=== PATIENT | female | born 1970 | race African-American/Black ===

== ENCOUNTER 2016-05-12 12:09 | Emergency (ER) | payer OTHER ==
[~2016-05-12] VITALS: Ht 154.9 cm; Wt 59.0 kg
[~2016-05-12 12:09] MED LIST: ESTRACE0.5 MG PO; FLAGYL500 MG PO; HYDROCHLOROTHIA25 M1 PO; LISINOPRIL10 MG PO; ZOFRAN ODT4 MG PO
[2016-05-12 12:10] VITALS: BP 138/97
[2016-05-12] MEDS ORDERED: METFORMIN HCL500 MG PO (12:15)
[2016-05-12 12:35] LABS: URINE BILIRUBIN NEGATIVE (Negative); URINE BLOOD TRACE (Negative); URINE COLOR YELLOW; URINE GLUCOSE-RANDOM* NEGATIVE (Negative); URINE KETONES NEGATIVE (Negative); URINE LEUKOCYTES-REFLEX NEGATIVE (Negative); URINE PROTEIN (DIPSTICK) NEGATIVE (Negative); URINE UROBILINOGEN 0.2 E.U./dl (0.2-1.0)
== END 2016-05-12 13:00 | disposition home or self-care (01) ==
LOC: ER 12:09
PROVIDERS: Physician Assistant
DX: N39.3 Stress incontinence (female) (male) (principal); I10 Essential (primary) hypertension; F10.99 Alcohol use, unspecified with unspecified alcohol-induced disorder; Z90.710 Acquired absence of both cervix and uterus; Z88.0 Allergy status to penicillin

== ENCOUNTER 2017-07-20 18:56 | Emergency (ER) | payer OTHER, SELFPAY ==
[~2017-07-20] VITALS: Ht 154.9 cm; Wt 59.0 kg
--- NOTE | ~2017-07-20 | EKG ---
[address] [address] ELECTROCARDIOGRAM REPORT Name: CITLALLIEDWARD PHILIP Chata Room #: [facility]#: [id number] Admission: 07/20/17 Attend Phys: Discharge: 07/20/17 Date of : 68 Report #: [id number] THIS REPORT FOR: //name// [facility] ED Test Date: 2017-07-20 Test Time: 19:17:43 Pat Name: EDWARD LENNON Department: Room: Gender: F Charge Lpn: NITHIN : 1970 Requested By: Christian Major Order Number: [id number] MD: Bertrand Pappas Measurements Intervals [place] Rate: 70 P: 68 [place]: 142 QRS: 21 QRSD: 86 T: 117 QT: 309 QTc: 334 Interpretive Statements Sinus rhythm Nonspecific ST and T wave abnormality No previous ECG available for comparison Electronically Signed On 07-21-2017 16:33:14 CDT by Bertrand Pappas [email or web address] <ELECTRONICALLY SIGNED> By: Bertrand Pappas MD, [facility] 07/21/17 1633 1917 16 Bertrand Pappas MD, FACC /EPI
[~2017-07-20 18:56] MED LIST changes: +METFORMIN HCL500 MG PO
[2017-07-20 19:30] LABS: ABSOLUTE NEUTROPHILS 2.6 thou/uL (1.4-8.2); BASOPHILS 0.7 % (0.0-2.0); EOSINOPHILS 4.1 % (0.0-3.0); HEMOGLOBIN 14.9 gm/dL (12.0-15.0); LYMPHOCYTES 41.9 % (24.0-44.0); MCH 27.2 pg (26.0-34.0); MCHC 33.2 g/dL (28.0-37.0); MONOCYTES 8.7 % (1.0-8.0); PLATELET COUNT 316 thou/uL (150-400); POLYS 44.6 % (36.0-66.0); RBC 5.48 mil/uL (4.20-5.00); WBC 5.8 thou/uL (4.0-11.0)
[2017-07-20] MEDS ORDERED: ESTRADIOL 1 MG T1 M1 PO (19:31)
[2017-07-20 19:39] LABS: ANION GAP 9 mmol/L (7-16); BUN 18 mg/dL (7-18); CHLORIDE 101 mmol/L (98-107); CO2 31 mmol/L (21-32); GLUCOSE 95 mg/dL (74-106); POTASSIUM 3.1 mmol/L (3.5-5.1); SODIUM 141 mmol/L (136-145)
[2017-07-20 19:47] LABS: ALBUMIN 4.1 g/dL (3.4-5.0); SGOT 24 U/L (15-37); SGPT 26 U/L (30-65); TOTAL BILIRUBIN 0.2 mg/dL (<0.1-1.0); TOTAL PROTEIN 8.5 g/dL (6.4-8.2); TROPONIN-I < 0.04 ng/mL (<0.06)
[2017-07-20 20:28] VITALS: BP 172/94
[2018-01-16] MEDS ORDERED: MACROBID 100 M100 M1 PO (14:13)
== END 2017-07-20 20:28 | disposition home or self-care (01) ==
LOC: ER 18:56
PROVIDERS: Emergency Medicine
DX: R07.89 Other chest pain (principal); R06.00 Dyspnea, unspecified; I10 Essential (primary) hypertension; Z90.710 Acquired absence of both cervix and uterus; Z88.0 Allergy status to penicillin

== ENCOUNTER → 2017-08-04 | Outpatient (CLI) | payer OTHER ==
[~2017-08-04] MED LIST changes: +ESTRADIOL 1 MG T1 M1 PO; +MACROBID 100 M100 M1 PO
== END ==
LOC: RAD 02:21
DX: Z12.31 Encounter for screening mammogram for malignant neoplasm of breast (principal)

== ENCOUNTER 2018-05-27 18:35 | Emergency (ER) | payer OTHER ==
[~2018-05-27] VITALS: Ht 154.9 cm; Wt 62.1 kg
[2018-05-27 19:09] LABS: ANION GAP 7 mmol/L (7-16); BUN 18 mg/dL (7-18); CALCIUM 9.4 mg/dL (8.5-10.1); CHLORIDE 102 mmol/L (98-107); CO2 31 mmol/L (21-32); CREATININE 0.9 mg/dL (0.6-1.0); GLUCOSE 83 mg/dL (74-106); POTASSIUM 3.4 mmol/L (3.5-5.1); SODIUM 140 mmol/L (136-145)
[2018-05-27 19:18] LABS: TROPONIN-I <0.06 ng/mL (<0.06)
[2018-05-27 19:29] LABS: ABSOLUTE NEUTROPHILS 2.5 thou/uL (1.4-8.2); BASOPHILS 0.5 % (0.0-2.0); EOSINOPHILS 3.7 % (0.0-3.0); HEMATOCRIT 44.2 % (37.0-47.0); HEMOGLOBIN 14.3 gm/dL (12.0-15.0); MCH 26.8 pg (26.0-34.0); MCHC 32.4 g/dL (28.0-37.0); MCV 82.8 fL (80.0-100.0); MONOCYTES 8.9 % (1.0-8.0); PLATELET COUNT 312 thou/uL (150-400); POLYS 41.9 % (36.0-66.0); RBC 5.33 mil/uL (4.20-5.00); RDW 13.9 % (10.5-14.5)
[2018-05-27 20:51] VITALS: BP 109/53
--- NOTE | 2018-05-28 08:51 | EKG ---
[address] [address] ELECTROCARDIOGRAM REPORT Name: CITLALLIEDWARD PHILIP Chata Room #: [facility]#: [id number] Admission: 05/27/18 Attend Phys: Discharge: 05/27/18 Date of : 68 Report #: [id number] THIS REPORT FOR: //name// [facility] ED Test Date: 2018-05-27 Test Time: 18:43:35 Pat Name: EDWARD LENNON Department: Room: Gender: F Overhead Line Worker: : 1970 Requested By: Inna Mackey Order Number: [id number] MD: Bertrand Pappas Measurements Intervals [place] Rate: 66 P: 64 [place]: 138 QRS: 26 QRSD: 84 T: 57 QT: 394 QTc: 413 Interpretive Statements Sinus rhythm Abnormal R-wave progression, early transition Compared to ECG 07/20/2017 19:17:43 ST (T wave) deviation no longer present early R-wave progression is now present Electronically Signed On 05-28-2018 8:50:50 PASSENGER CAR INSPECTOR by Bertrand Pappas [email or web address] <ELECTRONICALLY SIGNED> By: Bertrand Pappas MD, [facility] 05/28/18 0850 1843 1843 Bertrand Pappas MD, [facility] /EPI
== END 2018-05-27 20:52 | disposition home or self-care (01) ==
LOC: ER 18:35
PROVIDERS: Student in an Organized Health Care Education/Training Program
DX: B34.9 Viral infection, unspecified (principal); I10 Essential (primary) hypertension; Z90.710 Acquired absence of both cervix and uterus; Z88.0 Allergy status to penicillin

== ENCOUNTER → 2018-08-27 | Outpatient (CLI) | payer OTHER | LOC: RAD 03:25 | DX: Z12.31 Encounter for screening mammogram for malignant neoplasm of breast (principal) ==

== ENCOUNTER 2018-12-06 10:02 | Inpatient (IN) | payer OTHER ==
[2018-12-06] VITALS (8 sets, daily range): BP systolic 113–147; BP diastolic 65–85
[~2018-12-06] VITALS: Ht 154.9 cm; Wt 59.0 kg
[2018-12-06 10:34] LABS: ABSOLUTE NEUTROPHILS 6.8 thou/uL (1.4-8.2); BASOPHILS 0.5 % (0.0-2.0); EOSINOPHILS 0.3 % (0.0-3.0); HEMOGLOBIN 15.4 gm/dL (12.0-15.0); LYMPHOCYTES 13.1 % (24.0-44.0); MCH 27.2 pg (26.0-34.0); MCHC 33.6 g/dL (28.0-37.0); MCV 81.1 fL (80.0-100.0); MONOCYTES 4.9 % (1.0-8.0); PLATELET COUNT 311 thou/uL (150-400); POLYS 81.2 % (36.0-66.0); RBC 5.67 mil/uL (4.20-5.00); RDW 14.1 % (10.5-14.5); WBC 8.3 thou/uL (4.0-11.0)
[2018-12-06 10:47] LABS: ALBUMIN 4.2 g/dL (3.4-5.0); CALCIUM 10.3 mg/dL (8.5-10.1); CREATININE 0.9 mg/dL (0.6-1.0); DIRECT BILIRUBIN 0.1 mg/dL (<0.1-0.3); TOTAL BILIRUBIN 0.6 mg/dL (<0.1-1.0); TOTAL PROTEIN 8.5 g/dL (6.4-8.2)
[2018-12-06 10:50] LABS: POTASSIUM 2.9 mmol/L (3.5-5.1)
[2018-12-06 11:47] LABS: URINE BILIRUBIN NEGATIVE (Negative); URINE BLOOD TRACE (Negative); URINE COLOR YELLOW; URINE GLUCOSE-RANDOM* NEGATIVE (Negative); URINE KETONES 3+ (Negative); URINE LEUKOCYTES 2+ (Negative); URINE NITRITE NEGATIVE (Negative); URINE PROTEIN (DIPSTICK) NEGATIVE (Negative); URINE UROBILINOGEN 0.2 E.U./dl (0.2-1.0)
[2018-12-06 11:48] LABS: URINE CLARITY HAZY
[2018-12-06 12:01] LABS: SQUAMOUS >10 Many /LPF (0-3)
[2018-12-06 12:02] LABS: CRYSTALS None Seen /LPF (None Seen); HYALINE CASTS 0-3 Few /LPF (None Seen); URINE RBC None Seen /HPF (0-2)
[2018-12-06 15:25] LABS: MAGNESIUM 1.7 mg/dL (1.8-2.4)
[2018-12-06 18:18] LABS: CALCIUM 9.5 mg/dL (8.5-10.1); CREATININE 0.9 mg/dL (0.6-1.0); MAGNESIUM 1.8 mg/dL (1.8-2.4); POTASSIUM 3.4 mmol/L (3.5-5.1)
[2018-12-07 03:06] LABS: CA 125 7.7 U/mL (0.0-38.1)
[2018-12-07 03:55] LABS: ALBUMIN 3.4 g/dL (3.4-5.0); CALCIUM 9.1 mg/dL (8.5-10.1); CREATININE 0.8 mg/dL (0.6-1.0); TOTAL BILIRUBIN 0.5 mg/dL (<0.1-1.0); TOTAL PROTEIN 7.3 g/dL (6.4-8.2)
[2018-12-07 03:56] LABS: HEMATOCRIT 40.2 % (37.0-47.0); MCH 27.2 pg (26.0-34.0); MCHC 33.2 g/dL (28.0-37.0); MCV 81.9 fL (80.0-100.0); RBC 4.91 mil/uL (4.20-5.00); RDW 14.2 % (10.5-14.5); WBC 9.7 thou/uL (4.0-11.0)
[2018-12-07 04:13] LABS: HEMOGLOBIN 13.3 gm/dL (12.0-15.0)
[2018-12-07 05:21] VITALS: BP 93/55; BP 93/5555
[2018-12-07 09:05] VITALS: BP 120/75
[2018-12-07 17:30] VITALS: BP 122/78
[2018-12-07 20:44] VITALS: BP 107/67
[2018-12-08 03:56] LABS: CALCIUM 8.6 mg/dL (8.5-10.1); CREATININE 0.7 mg/dL (0.6-1.0); MAGNESIUM 1.7 mg/dL (1.8-2.4); POTASSIUM 3.2 mmol/L (3.5-5.1)
[2018-12-08 04:28] LABS: HEMATOCRIT 36.5 % (37.0-47.0); HEMOGLOBIN 12.1 gm/dL (12.0-15.0); MCH 27.2 pg (26.0-34.0); MCHC 33.2 g/dL (28.0-37.0); RBC 4.45 mil/uL (4.20-5.00); RDW 13.7 % (10.5-14.5); WBC 7.8 thou/uL (4.0-11.0)
[2018-12-08 05:21] VITALS: BP 114/66
[2018-12-08 08:19] VITALS: BP 136/81
[2018-12-08] MEDS ORDERED: MACROBID 100 M100 M1 PO (11:40)
--- NOTE | 2018-12-08 16:06 | PATH ---
[facility] [place] [address] PATHOLOGY RPT PROCEDURE Name: CITLALLITAISHA M Room #: 208-P ADM IN M.R.#: [id number] Admission: 12/06/18 Date of : 68 Discharge: Report #: [id number] Path Case #: [id number] [facility] Accession Number: [id number] . 01 Material submitted: . PART A: duodenum - BIOPSY OF DUODENAL MASS PART B: stomach - BIOPSY OF GASTRITIS . 01 Clinical history: . Abdominal pain, nausea with vomiting . 02 Diagnosis: A. Small bowel mucosa, duodenal mass, endoscopic biopsy: - Gastric fundic-type metaplastic mucosa associated with moderate acute and chronic inflammation, compatible with moderate acute peptic duodenitis. - Negative for villous blunting or increase in intraepithelial lymphocytes. - Mild reacive Annika gland hyperplasia. - Negative for dysplasia or malignancy. . B. Gastric mucosa, gastritis, endoscopic biopsy: - Helicobacter pylori induced moderate active gastritis. - Negative for intestine metaplasia or atrophy or dysplasia. - Properly controlled immunohistochemical stain performed showing mild number of organisms present. (IUV:city weighmaster; 12/08/2018) MBNikki/12/08/2018 . 02 Electronically signed: . Olga Flores MD, Pathologist NPI- [id number] . 01 Gross description: . A. Received in formalin labeled "Taisha Kaminski, BX of duodenal mass," are 3 segments of morales soft tissue measuring 0.9 x 0.8 x 0.4 cm in aggregate dimensions and ranging from 0.4 to 0.6 cm in maximum dimension. The specimen is submitted entirely in cassette A1. . B. Received in formalin labeled "Taisha Kaminski, BX of gastritis," are 3 segments of morales soft tissue measuring 1.0 x 0.8 x 0.3 cm in aggregate dimensions and ranging from 0.4 to 0.5 cm in maximum dimension. The specimen is submitted entirely in cassette B1. (TSD; 12/07/2018) TOB/TOB . 02 Pathologist provided ICD-10: [place] [address] PATHOLOGY RPT PROCEDURE Name: TAISHA KAMINSKI Room #: 208-P ADM IN M.R.#: [id number] Admission: 12/06/18 Date of : 68 Discharge: Report #: [id number] Path Case #: [id number] K29.80, K29.70, B96.81 . 02 CPT . 907502, [id number], [id number] Specimen Comment: A courtesy copy of this report has been sent to Specimen Comment: [phone], , . Specimen Comment: Report sent to ,DR SHARIF / DR OLIVAREZ Performed at: [address] [facility] [address], [place] [id number] MD Jaleel Mills MD Phone: [phone] Performed at: [address] [facility] [address] [id number] MD Olga Flores MD Phone: [phone]
[2018-12-08 17:20] VITALS: BP 124/73
[2018-12-08 19:28] VITALS: BP 113/57
[2018-12-09 04:00] VITALS: BP 131/61
[2018-12-09 05:24] LABS: MAGNESIUM 1.7 mg/dL (1.8-2.4); POTASSIUM 3.9 mmol/L (3.5-5.1)
[2018-12-09 07:25] VITALS: BP 114/58
[2018-12-09 19:55] VITALS: BP 128/75
--- NOTE | 2018-12-10 16:50 | P ---
[facility] [address] [address] PROCEDURE REPORT Name: CITLALLIEDWARD M Room #: 208-P [facility] IN M.R.#: [id number] Admission: 12/06/18 Attend Phys: Chandra Hernandez MD Discharge: 12/09/18 Date of : 68 Report #: [id number] THIS REPORT FOR: //name// CC: Greta Hernandez MD DATE OF SERVICE: 12/07/2018 PROCEDURE PERFORMED: Upper endoscopy with biopsies. HISTORY OF PRESENT ILLNESS: The patient is a 48-year-old female with new-onset abdominal pain last Thursday, also associated with nausea and vomiting, was evaluated at [facility]. Labs at that time were negative. There was no imaging performed. The patient did have continued pain, was seen here in the Emergency Room. CT scan of the abdomen and pelvis here showing a 4 x 4.8 x 4.2 well-circumscribed low-density mass in the region of the uncinate process of the pancreas as well as some mass effect upon the adjacent duodenum. There are surrounding soft tissue inflammatory changes. The duodenum was decompressed. Liver and gallbladder normal. The patient's liver function tests and lipase were normal on admission and today. A CEA level as well as CA 19-9 are pending. CA-125 was normal at 7.7. Plan is for upper endoscopy. DESCRIPTION OF PROCEDURE: The risks and benefits of the procedure were explained to the patient; those risks including, but not limited to bleeding, perforation and the risk of sedation. She understood these risks and gave informed consent. Sedation was given using propofol per Anesthesia. Next, using a standard Olympus upper endoscope, the scope was placed in the patient's mouth and advanced under direct vision through the esophagus, stomach and into the second portion of the duodenum. The larynx was normal in appearance. The esophagus was normal throughout. The GE junction was normal. Overall, the gastric mucosa was normal in the fundus and the body. However, in the antrum, there was moderate gastritis with multiple erosions and a few small clean white-bases ulcers. No evidence of bleeding. Biopsies were obtained to rule out H. pylori. The pylorus was normal and patent. The duodenal bulb was normal; however, at the first to second portion of the duodenum, there was a large polyp/mass-like lesion. This was a near obstructing mass. It appears to have a tubular adenomatous appearance to it. I was able to obtain some biopsies. There was bile flow noted around the mass area. I tried several times to advance the scope beyond, however, there was not much lumen remaining because of the mass effect. The polyp/mass appears to be about 2 cm in size. It was somewhat soft with compression using a biopsy forceps. At this point, the scope was then withdrawn and the procedure terminated. The patient tolerated the procedure well. IMPRESSION: [facility] [address] [place] [address] PROCEDURE REPORT Name: EDWARD LENNON Room #: 208-P DIS IN M.R.#: [id number] Admission: 12/06/18 Attend Phys: Chandra Hernandez MD Discharge: 12/09/18 Date of : 68 Report #: [id number] 1. Large polyp/mass involving the first to second portion of the duodenum. This is decreasing the size of the lumen significantly. It appears to be adenomatous type of tissue. Again, biopsies were obtained. There could be a significant submucosal component to this lesion. 2. Gastritis with multiple erosions and a few small ulcerations. 3. Otherwise, normal upper endoscopy. RECOMMENDATIONS: 1. Await biopsy results. 2. We will advance diet at this time. 3. I would recommend having the patient proceed with an endoscopic ultrasound in the near future. 4. We will start daily PPI therapy. Thank you for allowing me to participate in her care. <ELECTRONICALLY SIGNED> By: Sanjay Merrill MD 12/10/18 1650 1250 0156 Sanjay Merrill MD /nt
== END 2018-12-09 21:25 | disposition short-term general hospital (02) | DRG 381 ==
LOC: ER 10:02 → EROBS 12:21 → 2N 12:21 → EROBS 14:16 → 2N 20:18
PROVIDERS: Internal Medicine; Nurse Practitioner; ADMIT Internal Medicine
PROC: 0DB98ZX Excision of Duodenum, Via Natural or Artificial Opening Endoscopic, Diagnostic (ICD-10-PCS; principal; 2018-12-07)
PROC: 0DB78ZX Excision of Stomach, Pylorus, Via Natural or Artificial Opening Endoscopic, Diagnostic (ICD-10-PCS; principal; 2018-12-07)
DX: K31.5 Obstruction of duodenum (principal); N39.0 Urinary tract infection, site not specified; K31.7 Polyp of stomach and duodenum; K29.70 Gastritis, unspecified, without bleeding; E87.6 Hypokalemia; K25.9 Gastric ulcer, unspecified as acute or chronic, without hemorrhage or perforation; E83.42 Hypomagnesemia; B96.81 Helicobacter pylori [H. pylori] as the cause of diseases classified elsewhere; Z90.710 Acquired absence of both cervix and uterus; Z79.899 Other long term (current) drug therapy; Z88.0 Allergy status to penicillin
CPT/HCPCS: 10194; 62110; 62900

== ENCOUNTER → 2020-08-20 | Outpatient (CLI) | payer OTHER | LOC: BC 10:34 | PROVIDERS: ATTEND Family Medicine | DX: Z12.31 Encounter for screening mammogram for malignant neoplasm of breast (principal) ==

== ENCOUNTER 2020-09-27 19:36 | Emergency (ER) | payer OTHER ==
[~2020-09-27] VITALS: Ht 154.9 cm; Wt 65.8 kg
[2020-09-27 19:46] VITALS: BP 135/84
[2020-09-27] MEDS ORDERED: NORVASC5 MG PO (19:55)
[2020-09-27] MEDS ORDERED: SPIRONOLACTONE25 MG PO (19:55)
[2020-09-27] MEDS ORDERED: ESTRACE0.5 MG PO (19:55)
[2020-09-27 20:03] LABS: URINE BILIRUBIN NEGATIVE (Negative); URINE BLOOD NEGATIVE (Negative); URINE CLARITY CLEAR; URINE COLOR YELLOW; URINE GLUCOSE-RANDOM* NEGATIVE (Negative); URINE KETONES NEGATIVE (Negative); URINE LEUKOCYTES-REFLEX TRACE (Negative); URINE NITRITE-REFLEX NEGATIVE (Negative); URINE PROTEIN (DIPSTICK) NEGATIVE (Negative); URINE SPECIFIC GRAVITY 1.025 (1.005-1.035); URINE UROBILINOGEN 0.2 E.U./dl (0.2-1.0)
[2020-09-27] MEDS ORDERED: KEFLEX750 MG PO (20:22)
[2020-09-27] MEDS ORDERED: PYRIDIUM200 MG PO (20:22)
== END 2020-09-27 20:30 | disposition home or self-care (01) ==
LOC: ER 19:36
PROVIDERS: Emergency Medicine
DX: R30.0 Dysuria (principal); I10 Essential (primary) hypertension; E11.9 Type 2 diabetes mellitus without complications; Z88.0 Allergy status to penicillin; Z79.899 Other long term (current) drug therapy; Z90.710 Acquired absence of both cervix and uterus